=== PATIENT | female | born 1960 | race Caucasian/White ===

== ENCOUNTER 2017-06-20 01:00 | Inpatient (IN) | payer SELFPAY ==
[2017-06-20] VITALS (17 sets, daily range): BP systolic 111–162; BP diastolic 60–97; PULSE 46–80; RESP 12–25; TEMP 97.8–98.7; O2SAT 93–100
[~2017-06-20] VITALS: Ht 160 cm; Wt 57.7 kg
[~2017-06-20 01:00] MED LIST: ALBU17I INH; DOXY100T PO; PRED20 PO; Z.0.NO CURRENT MEDS
[2017-06-20] MEDS ORDERED: SODIUM CHLOR 0.9% 1000 ML INJ 1,000 ML IV ONE (02:30)
[2017-06-20 02:57] LABS: AUTOMATED NEUTROPHIL # 4.5 TH/MM3 (1.8-7.7); BASOPHIL # 0.1 TH/MM3 (0-0.2); BASOPHIL % 1.2 % (0.0-2.0); EOSINOPHIL # 0.2 TH/MM3 (0-0.4); EOSINOPHIL % 2.3 % (0.0-4.0); HEMATOCRIT 36.2 % (35.0-46.0); HEMOGLOBIN 12.6 GM/DL (11.6-15.3); LYMPH % 34.5 % (9.0-44.0); LYMPHOCYTE # 2.7 TH/MM3 (1.0-4.8); MEAN CELL VOLUME 88.1 FL (80.0-100.0); MEAN CORPUSCULAR HEMOGLOBIN 30.7 PG (27.0-34.0); MEAN CORPUSCULAR HGB CONC 34.9 % (32.0-36.0); MEAN PLATELET VOLUME 9.1 FL (7.0-11.0); MONOCYTE # 0.4 TH/MM3 (0-0.9); PLATELET COUNT 219 TH/MM3 (150-450); RED BLOOD COUNT 4.11 MIL/MM3 (4.00-5.30); RED CELL DISTRIBUTION WIDTH 12.7 % (11.6-17.2); WHITE BLOOD COUNT 7.9 TH/MM3 (4.0-11.0)
[2017-06-20 03:04] LABS: BICARBONATE 26.4 MEQ/L (21.0-32.0); CALCIUM 8.1 MG/DL (8.5-10.1); CREATININE 0.55 MG/DL (0.50-1.00)
--- NOTE | 2017-06-20 03:38 | RADRPT ---
EXAM DATE/TIME: 06/20/2017 03:22 [facility] COMPARISON: No previous studies available for comparison. INDICATIONS : Syncope after ETOH. RADIATION DOSE: 56.35 CTDIvol (mGy) MEDICAL HISTORY : ETOH SURGICAL HISTORY : None. ENCOUNTER: Initial ACUITY: 1 day PAIN SCALE: 0/10 LOCATION: cranial TECHNIQUE: Multiple contiguous axial images were obtained of the head. Using automated exposure control and adj ustment of the mA and/or kV according to patient size, radiation dose was kept as low as reasonably a chievable to obtain optimal diagnostic quality images. DICOM format image data is available electro nically for review and comparison. FINDINGS: CEREBRUM: Ventricles are normal. There is an 8mm area of high density in the mesial right parietal lobe in the mid convexity. Otherwise, no midline shift, mass lesion, or acute infarction. No extra-axial fluid c ollections are seen. POSTERIOR FOSSA: The cerebellum and brainstem demonstrate no acute finding. The 4th ventricle is midline. The cerebe llopontine angle is unremarkable. EXTRACRANIAL: There is mild left maxillary mucoperiosteal thickening. SKULL: The calvaria is intact. No evidence of skull fracture. CONCLUSION: There is an 8mm area of high density in the mesial right parietal lobe in the mid convexity, likely r epresenting acute blood products. No specific cause is identified. No other acute finding is identifi ed. Nader Cruz MD on June 20, 2017 at 3:34 Board Certified Radiologist. This report was verified electronically.
[2017-06-20] MEDS ORDERED: LORazepam 2 MG/ML VIAL IV PUSH ONE ×2 (04:15→05:15)
[2017-06-20 04:41] LABS: MAGNESIUM 0.7 MG/DL (1.5-2.5)
[2017-06-20 04:43] LABS: PROTHROMBIN TIME - PATIENT 9.7 SEC (9.8-11.6); TROPONIN I LESS THAN 0.02 NG/ML (0.02-0.05)
--- NOTE | 2017-06-20 05:06 | HHI.HP ---
HPI Service Critical Care Medicine Primary Care Physician Unknown Admission Diagnosis (R) parietal bleed; alcohol intoxication Diagnosis: Travel History International Travel<30 Days: No Contact w/Intl Traveler <30 Da: No Traveled to Known Affected Are: No History of Present Illness 56-year-old female was found by EMS close to a bar combative and agitated, extremely confused and altered. She was brought in emergency department where she received 1 dose of Ativan for sedation and underwent a CT of the head. The imaging studies report questionable small intracranial humeri which intraparenchymal and the patient is admitted to critical care services. Review of Systems ROS Unobtainable patient is severely intoxicated Past Family Social History Allergies: Coded Allergies: No Known Allergies (Verified Allergy, Mild, 06/20/17) Past Medical History Unobtainable Past Surgical History Unobtainable Reported Medications Reported Meds & Active Scripts Active No Active Prescriptions or Reported Medications Active Ordered Medications Current Medications Medications (Trade) Dose Ordered Sig/Gabriele Route PRN Reason Start Time Stop Time Status Last Admin Dose Admin Dexmedetomidine HCl 200 mcg/ Sodium Chloride 50 ml @ 3.75 mls/hr TITRATE PRN IV Desired RASS 06/20/17 05:30 Sodium Chloride 1,000 ml @ 124 mls/hr Q8H4M IV 06/20/17 05:23 Sodium Chloride (NS Flush) 2 ml UNSCH PRN IV FLUSH FLUSH AFTER USING IV ACCESS 06/20/17 05:30 Sodium Chloride (NS Flush) 2 ml BID IV FLUSH 06/20/17 09:00 Acetaminophen (Tylenol) 650 mg Q6H PRN PO PAIN 1-5 AND/OR FEVER >101F 06/20/17 05:30 Morphine Sulfate (Morphine Inj) 2 mg Q2H PRN IV PUSH PAIN SCALE 6 TO 10 06/20/17 05:30 Famotidine (Pepcid Inj) 20 mg Q12HR IV PUSH 06/20/17 09:00 Ondansetron HCl (Zofran Inj) 4 mg Q6H PRN IV PUSH NAUSEA OR VOMITING 06/20/17 05:30 Temazepam (Restoril) 15 mg HS PRN PO INSOMNIA 06/20/17 05:30 Albuterol/ Ipratropium (Duoneb Neb) 1 ampule Q2HR NEB PRN INH WHEEZING 06/20/17 05:30 Miscellaneous Information 1 Q361D XX 06/20/17 05:30 Chlorhexidine Gluconate (Chlorhexidine 2% Cloth) 3 pack Taper DAILY@04 TOP 06/21/17 04:00 06/17/18 03:59 Chlorhexidine Gluconate (Chlorhexidine 2% Cloth) 3 pack UNSCH PRN TOP HYGIENIC CARE 06/20/17 05:30 Senna/Docusate Sodium (Jana-Colace) 1 tab BID PO 06/20/17 09:00 Magnesium Hydroxide (Milk Of Magnesia Liq) 30 ml Q12H PRN PO Mild constipation 06/20/17 05:30 Sennosides (Senokot) 17.2 mg Q12H PRN PO Moderate constipation 06/20/17 05:30 Bisacodyl (Dulcolax Supp) 10 mg DAILY PRN RECTAL SEVERE CONSITIPATION 06/20/17 05:30 Lactulose (Lactulose Liq) 30 ml DAILY PRN PO SEVERE CONSITIPATION 06/20/17 05:30 Multivitamins 10 ml/Thiamine HCl 100 mg/Folic Acid 1 mg/Sodium Chloride 511.2 ml @ 125 mls/hr ONCE ONCE IV 06/20/17 09:00 06/20/17 13:05 Flumazenil (Romazicon Inj) 0.2 mg Q1M PRN IV PUSH SEE LABEL COMMENTS 06/20/17 05:30 Lorazepam (Ativan) 1 mg Q4H PRN PO CIWA 8 - 10 06/20/17 05:30 Lorazepam (Ativan Inj) 1 mg Q4H PRN IV PUSH CIWA 8 - 10 06/20/17 05:30 Lorazepam (Ativan) 2 mg Q2H PRN PO CIWA 11-14 06/20/17 05:30 Lorazepam (Ativan Inj) 2 mg Q2H PRN IV PUSH CIWA 11-14 06/20/17 05:30 Lorazepam (Ativan Inj) 2 mg Q1H PRN IV PUSH CIWA 15-20 06/20/17 05:30 Lorazepam (Ativan Inj) 2 mg Q15M PRN IV PUSH CIWA > 20 06/20/17 05:30 Family History Unobtainable Social History Unobtainable Physical Exam Vital Signs Vital Signs Date Time Temp Pulse Resp B/P (MAP) Pulse Ox O2 Delivery O2 Flow Rate FiO2 06/20/17 04:44 2/8/18 03:45 64 14 115/68 (84) 98 Room Air 06/20/17 02:44 71 12 114/61 (78) 100 Room Air 06/20/17 01:13 97.8 64 16 144/69 (94) 97 Physical Exam GENERAL: Heavily intoxicated female, combative in moderate distress SKIN: Warm and dry. HEAD: Normocephalic. EYES: No scleral icterus. No injection or drainage. NECK: Supple, trachea midline. No JVD or lymphadenopathy. CARDIOVASCULAR: Regular rate and rhythm without murmurs, gallops, or rubs. RESPIRATORY: Breath sounds equal bilaterally. No accessory muscle use. GASTROINTESTINAL: Abdomen soft, non-tender, nondistended. MUSCULOSKELETAL: No cyanosis, or edema. BACK: Nontender without obvious deformity. NEURO EXAM: GCS: 14 Mental Status: The patient is alert and oriented to person, she is combative and agitated Laboratory Laboratory Tests Test 06/20/17 02:40 06/20/17 04:00 White Blood Count 7.9 Red Blood Count 4.11 Hemoglobin 12.6 Hematocrit 36.2 Mean Corpuscular Volume 88.1 Mean Corpuscular Hemoglobin 30.7 Mean Corpuscular Hemoglobin Concent 34.9 Red Cell Distribution Width 12.7 Platelet Count 219 Mean Platelet Volume 9.1 Neutrophils (%) (Auto) 57.0 Lymphocytes (%) (Auto) 34.5 Monocytes (%) (Auto) 5.0 Eosinophils (%) (Auto) 2.3 Basophils (%) (Auto) 1.2 Neutrophils # (Auto) 4.5 Lymphocytes # (Auto) 2.7 Monocytes # (Auto) 0.4 Eosinophils # (Auto) 0.2 Basophils # (Auto) 0.1 CBC Comment DIFF FINAL Differential Comment Blood Urea Nitrogen 14 Creatinine 0.55 Random Glucose 134 Calcium Level 8.1 Sodium Level 137 Potassium Level 3.2 Chloride Level 102 Carbon Dioxide Level 26.4 Anion Gap 9 Estimat Glomerular Filtration Rate 114 Ethyl Alcohol Level 292 Prothrombin Time 9.7 Prothromb Time International Ratio 1.0 Activated Partial Thromboplast Time 19.2 Magnesium Level 0.7 Troponin I LESS THAN 0.02 Result Diagram: 06/20/17 0240 06/20/17 0240 Imaging Last [address] 06/20/17 0000 Signed Impressions: Service Date/Time: June 03:22 - CONCLUSION: There is an 8mm area of high density in the mesial right parietal lobe in the mid convexity , likely representing acute blood products. No specific cause is identified. No other acute finding is identified. Nader Cruz MD Septic Shock Reassessment Septic shock perfusion: reassessment completed Caprini VTE Risk Assessment Caprini VTE Risk Assessment: Mod/High Risk (score >= 2) VTE Pharm Contraindication: Hemorrhage Caprini Risk Assessment Model Point Value = 1 Point Value = 2 Point Value = 3 Point Value = 5 Age 41-60 Minor surgery BMI > 25 kg/m2 Swollen legs Varicose veins or History of unexplained or recurrent spontaneous Oral contraceptives or hormone replacement Sepsis (< 1 month) Serious lung disease, including pneumonia (< 1 month) Abnormal pulmonary function Acute myocardial infarction Congestive heart failure (< 1 month) History of inflammatory bowel disease Medical patient at bed rest Age 61-74 Arthroscopic surgery Major open surgery (> 45 min) Laparoscopic surgery (> 45 min) Malignancy Confined to bed (> 72 hours) Immobilizing plaster cast Central venous access Age >= 75 History of VTE Family history of VTE Factor V Leiden Prothrombin [id number] Lupus anticoagulant Anticardiolipin antibodies Elevated serum homocysteine Heparin-induced thrombocytopenia Other congenital or acquired thrombophilia Stroke (< 1 month) Elective arthroplasty Hip, pelvis, or leg fracture Acute spinal cord injury (< 1 month) Prophylaxis Regimen Total Risk Factor Score Risk Level Prophylaxis Regimen 0-1 Low Early ambulation 2 Moderate Order ONE of the following: *Sequential Compression Device (SCD) *Heparin 5000 units SQ BID 3-4 Higher Order ONE of the following medications: *Heparin 5000 units SQ TID *Enoxaparin/Lovenox 40 mg SQ daily (WT < 150 kg, CrCl > 30 mL/min) *Enoxaparin/Lovenox 30 mg SQ daily (WT < 150 kg, CrCl > 10-29 mL/min) *Enoxaparin/Lovenox 30 mg SQ BID (WT < 150 kg, CrCl > 30 mL/min) AND/OR *Sequential Compression Device (SCD) 5 or more Highest Order ONE of the following medications: *Heparin 5000 units SQ TID (Preferred with Epidurals) *Enoxaparin/Lovenox 40 mg SQ daily (WT < 150 kg, CrCl > 30 mL/min) *Enoxaparin/Lovenox 30 mg SQ daily (WT < 150 kg, CrCl > 10-29 mL/min) *Enoxaparin/Lovenox 30 mg SQ BID (WT < 150 kg, CrCl > 30 mL/min) AND *Sequential Compression Device (SCD) Assessment and Plan Assessment and Plan ICH - Repeat CT head in 10 hours - No surgical intervention indicated - Blood pressure control with SBP goal less than 140 - Neuro checks per unit protocol Intoxication - CIWA protocol - Precedex drip - Thiamine folate and multivitamins Hypokalemia Hypomagnesemia - Electrolyte replacement per ICU protocol DVT GI prophylaxis - Teds SCDs - No pharmacological DVT prophylaxis due to acute ICH - Pepcid Critical Care: The total critical care time was 35 minutes. Time to perform other separately billable procedures was not included in the critical care time. Garry Flannery MD Jun 20, 2017 05:06
[2017-06-20] MEDS ORDERED: HALOPERIDOL LACTATE 5 MG/ML AMP IV PUSH ONE (05:15)
[2017-06-20] MEDS: SODIUM CHLOR 0.9% 1000 ML INJ 1,000 ML IV SCH ×3 (05:23→22:54)
[2017-06-20] MEDS ORDERED: RESP: ALBUTEROL 2.5 MG/IPRATROPIUM 0.5 MG NEB (PRN) INH (05:30)
[2017-06-20] MEDS ORDERED: SODIUM CHLORIDE 0.9% FLUSH 10 ML FLUSH IV FLUSH PRN (05:30)
[2017-06-20] MEDS ORDERED: LORazepam 2 MG TAB PO PRN (05:30)
[2017-06-20] MEDS ORDERED: LORazepam 1 MG TAB PO PRN (05:30)
[2017-06-20] MEDS ORDERED: TEMAZEPAM 15 MG CAP PO PRN (05:30)
[2017-06-20] MEDS ORDERED: ACETAMINOPHEN 325 MG TAB PO PRN (05:30)
[2017-06-20] MEDS ORDERED: CHLORHEXIDINE GLUCONATE 2 % 1 PACK (2 CLOTHS) TOP PRN (05:30)
[2017-06-20] MEDS ORDERED: BISACODYL 10 MG SUPP RECTAL PRN (05:30)
[2017-06-20] MEDS ORDERED: MAGNESIUM HYDROXIDE SUSP 30 ML CUP PO PRN (05:30)
[2017-06-20] MEDS ORDERED: FLUMAZENIL 0.5 MG/5 ML VIAL IV PUSH PRN (05:30)
[2017-06-20] MEDS ORDERED: LACTULOSE SYRUP 20 GM/30 ML CUP PO PRN (05:30)
[2017-06-20] MEDS ORDERED: MISCELLANEOUS NURSING INFORMATION XX SCH (05:30)
[2017-06-20] MEDS ORDERED: SENNOSIDES 8.6 MG TAB PO PRN (05:30)
[2017-06-20] MEDS ORDERED: LORazepam 2 MG/ML VIAL IV PUSH PRN ×3 (05:30)
[2017-06-20] MEDS ORDERED: MORPHINE SULFATE 4 MG/ML INJ IV PUSH PRN (05:30)
[2017-06-20] MEDS ORDERED: ONDANSETRON HCL 4 MG/2 ML VIAL IV PUSH PRN (05:30)
[2017-06-20] MEDS ORDERED: POTASSIUM PHOSPHATE INJ 30 MMOL in SODIUM CHLOR 0.9% 250 ML INJ 250 ML IV PRN (06:45)
[2017-06-20] MEDS ORDERED: MAGNESIUM SULFATE INJ 4 GM in SODIUM CHLORIDE 0.9% INJ 92 ML IV PRN (06:45)
[2017-06-20] MEDS ORDERED: MAGNESIUM OXIDE 400 MG TAB PO PRN (06:45)
[2017-06-20] MEDS ORDERED: POTASSIUM PHOSPHATE MONOBASIC 500 MG TAB PO PRN (06:45)
[2017-06-20] MEDS ORDERED: POTASSIUM CHLOR 40 MEQ PREMIX 100 ML IV PRN ×2 (06:45)
[2017-06-20] MEDS ORDERED: POTASSIUM PHOSPHATE MONOBASIC 500 MG TAB PO/TUBE PRN (06:45)
[2017-06-20] MEDS ORDERED: SODIUM PHOSPHATE INJ 30 MMOL in SODIUM CHLOR 0.9% 250 ML INJ 240 ML IV PRN (06:45)
[2017-06-20] MEDS ORDERED: MAGNESIUM SULFATE INJ 2 GM in SODIUM CHLORIDE 0.9% INJ 96 ML IV PRN (06:45)
[2017-06-20] MEDS ORDERED: POTASSIUM CHLOR 20 MEQ PREMIX 100 ML IV PRN (06:45)
[2017-06-20] MEDS ORDERED: POTASSIUM CHLORIDE 25 MEQ EFFERVESCENT TAB PO PRN (06:45)
--- NOTE | 2017-06-20 08:25 | PD ---
HPI Chief Complaint: Alcohol/Drug Intoxication Time Seen by Provider: 02:17 Travel History International Travel<30 days: No Contact w/Intl Traveler<30days: No Traveled to known affect area: No History of Present Illness HPI 56-year-old female presents to the emergency department by EMS transport after being found on the ground next to a bar where she had been drinking. Patient was reported initially to have decreased level of consciousness but en route to the hospital became argumentative and combative with EMS personnel. Upon arrival to the emergency department patient was yelling and screaming and crying about the stretcher but was quickly the escalated and IV access was obtained and specimens collected and sent for resulting. Upon interview patient is able to say her name but appears to have slurred speech and appears consistent with alcohol intoxication by history and admits to drinking alcohol. Patient denies any substance use. Patient denies any injury or fall. Patient states that she was drinking heavily and so she laid down on the ground states she did not hit her head denies having loss of consciousness denies neck pain chest pain back pain abdominal pain or extremity injury. Patient states she just wants to be left alone and then becomes agitated and argumentative which did escalated upon decreasing questioning or stimulation of the patient. Patient denies any other complaints at this time. Patient did have one time episode of emesis and was administered a one-time dose of Zofran by EMS prior to arrival to the emergency department. 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, "VERY MILD CASE") Tetanus Vaccination: Unknown Influenza Vaccination: No : 2 Para: 0 Miscarriage: 2 : 0 Ectopic : Yes (REMOVED L FALLOP TUBE ) Ovarian Cysts: No Tubal Ligation: No Past Surgical History Surgical History: Unable to Obtain Hysterectomy: No Social History Alcohol Use: Yes (8 TIMES A MONTH) Tobacco Use: Yes (1PPD) Substance Use: No Allergies-Medications (Allergen,Severity, Reaction): Coded Allergies: No Known Allergies (Verified Allergy, Mild, 06/20/17) Reported Meds & Prescriptions Reported Meds & Active Scripts Active No Active Prescriptions or Reported Medications Review of Systems ROS Limitations: Altered Mental Status, Uncooperative (intermittently), Poor Historian Physical Exam Narrative GENERAL: Well-developed well-nourished disheveled female in no acute distress no respiratory distress, GCS14 SKIN: Warm and dry. HEAD: Atraumatic. Normocephalic. No scalp soft tissue tenderness soft tissue swelling abrasion laceration or bony abnormality. EYES: Pupils equal and round. Extraocular muscles intact. No periorbital rim ecchymosis or bony abnormality. No scleral icterus. No injection or drainage. ENT: No nasal bleeding or discharge. Mucous membranes pink and moist. Airway is patent. No hemotympanum. NECK: Trachea midline. No JVD. No tenderness to palpation along the cervical spine no midline tenderness no bony step-off. CARDIOVASCULAR: Regular rate and rhythm. RESPIRATORY: No accessory muscle use. Clear to auscultation. Breath sounds equal bilaterally. GASTROINTESTINAL: Abdomen soft, non-tender, nondistended. Hepatic and splenic margins not palpable. MUSCULOSKELETAL: Extremities without clubbing, cyanosis, or edema. No obvious deformities. NEUROLOGICAL: Awake and intermittently argumentative. No obvious cranial nerve deficits. Motor grossly within normal limits. Five out of 5 muscle strength in the arms and legs. Normal speech. Data Data Last Documented VS Vital Signs Date Time Temp Pulse Resp B/P (MAP) Pulse Ox O2 Delivery O2 Flow Rate FiO2 06/20/17 03:45 64 14 115/68 (84) 98 Room Air 06/20/17 01:13 97.8 Orders Orders Sodium Chlor 0.9% 1000 Ml Inj (Ns 1000 M (06/20/17 02:30) Alcohol (Ethanol) (06/20/17 02:17) Ct Brain W/O Iv Contrast(Rout) (06/20/17 ) Complete Blood Count With Diff (06/20/17 02:19) Basic Metabolic Panel (Bmp) (06/20/17 02:17) Electrocardiogram (06/20/17 ) Act Partial Throm Time (Ptt) (06/20/17 03:53) Prothrombin Time / Inr (Pt) (06/20/17 03:53) Magnesium (Mg) (06/20/17 03:53) Troponin I (06/20/17 03:53) NPO (06/20/17 03:53) Admit Order (Ed Use Only) (06/20/17 ) Gag Writer / Telemetry NEHAL.Q8H (06/20/17 03:55) Diet Npo (06/20/17 Breakfast) Activity Bed Rest (06/20/17 03:55) Notify Dr: Other (06/20/17 03:55) Labs Laboratory Tests Test 06/20/17 02:40 White Blood Count 7.9 TH/MM3 Red Blood Count 4.11 MIL/MM3 Hemoglobin 12.6 GM/DL Hematocrit 36.2 % Mean Corpuscular Volume 88.1 FL Mean Corpuscular Hemoglobin 30.7 PG Mean Corpuscular Hemoglobin Concent 34.9 % Red Cell Distribution Width 12.7 % Platelet Count 219 TH/MM3 Mean Platelet Volume 9.1 FL Neutrophils (%) (Auto) 57.0 % Lymphocytes (%) (Auto) 34.5 % Monocytes (%) (Auto) 5.0 % Eosinophils (%) (Auto) 2.3 % Basophils (%) (Auto) 1.2 % Neutrophils # (Auto) 4.5 TH/MM3 Lymphocytes # (Auto) 2.7 TH/MM3 Monocytes # (Auto) 0.4 TH/MM3 Eosinophils # (Auto) 0.2 TH/MM3 Basophils # (Auto) 0.1 TH/MM3 CBC Comment DIFF FINAL Differential Comment Blood Urea Nitrogen 14 MG/DL Creatinine 0.55 MG/DL Random Glucose 134 MG/DL Calcium Level 8.1 MG/DL Sodium Level 137 MEQ/L Potassium Level 3.2 MEQ/L Chloride Level 102 MEQ/L Carbon Dioxide Level 26.4 MEQ/L Anion Gap 9 MEQ/L Estimat Glomerular Filtration Rate 114 ML/MIN Ethyl Alcohol Level 292 MG/DL [facility] Medical Decision Making Medical Screen Exam Complete: Yes Emergency Medical Condition: Yes Medical Record Reviewed: Yes Interpretation(s) Serum alcohol: 292, elevated Last Impressions Head CT 06/20/17 0000 Signed Impressions: Service Date/Time: June 03:22 - CONCLUSION: There is an 8mm area of high density in the mesial right parietal lobe in the mid convexity , likely representing acute blood products. No specific cause is identified. No other acute finding is identified. Nader Cruz MD CBC & BMP Diagram 06/20/17 02:40 Calcium Level 8.1 L Vital Signs Date Time Temp Pulse Resp B/P (MAP) Pulse Ox O2 Delivery O2 Flow Rate FiO2 06/20/17 03:45 64 14 115/68 (84) 98 Room Air 06/20/17 02:44 71 12 114/61 (78) 100 Room Air 06/20/17 01:13 97.8 64 16 144/69 (94) 97 EKG: Sinus rhythm no acute ST elevation or injury pattern noted Troponin I less than 0.02, not elevated Differential Diagnosis Alcohol intoxication, altered mentation, polysubstance ingestion, minor closed head injury, ICH Narrative Course IV access obtained IV fluids administered patient placed on monitor Patient awaken migraine and removes IV access stating that she doesn't need an IV she doesn't want to be here and she wants to leave Patient taken for CT noncontrast no skull fracture identified to have small area of bleeding in the right parietal region; call placed to neurosurgery and to turbo operator Patient informed that she will need to be admitted for monitoring and becomes agitated and starts yelling and combative kicking at medical staff stating that she refuses to be admitted and refusing to have IV access; patient placed in soft restraints and due to increased agitation administered 1 mg of Ativan Patient's alcohol level 292 and patient is accepted for admission to ICU for observation. Patient identified to have mild hypokalemia troponin I less than 0.02 Magnesium level pending Physician Communication Physician Communication DISCUSSED WITH dR Becerra; DISCUSSED WITH dR Padron Diagnosis Primary Impression: ICH (intracerebral hemorrhage) Additional Impression: Alcohol intoxication Admitting Information Admitting Physician Requests: Admit Scripts No Active Prescriptions or Reported Meds Kiersten Marsh MD Jun 20, 2017 08:25
[2017-06-20] MEDS: SODIUM CHLORIDE 0.9% FLUSH 10 ML FLUSH IV FLUSH SCH ×2 (09:00→20:45)
[2017-06-20] MEDS ORDERED: MULTIVITAMIN INJ 10 ML, THIAMINE INJ 100 MG, FOLIC ACID INJ 1 MG in SODIUM CHLOR 0.45% ... IV ONE (09:00)
[2017-06-20] MEDS: FAMOTIDINE 20 MG/2 ML VIAL IV PUSH SCH ×2 (09:51→20:46)
[2017-06-20] MEDS: DOCUSATE SODIUM 50 MG/SENNA 8.6 MG TAB PO SCH ×2 (09:51→20:46)
[2017-06-20] MEDS: DEXMEDETOMIDINE 200 MCG in NS 48 ML IV PRN ×4 (09:52→22:00)
[2017-06-20] MEDS: POTASSIUM CHLOR 20 MEQ PREMIX 100 ML IV PRN ×4 (10:00→20:31)
[2017-06-20] MEDS: LORazepam 2 MG/ML VIAL IV PUSH PRN ×2 (12:10→14:26)
--- NOTE | 2017-06-20 16:52 | RADRPT ---
EXAM DATE/TIME: 06/20/2017 16:24 [facility] COMPARISON: CT BRAIN W/O CONTRAST, June 20, 2017, 3:22. INDICATIONS : Head pain due to intracerebral hemorrhage. RADIATION DOSE: 56.35 CTDIvol (mGy) MEDICAL HISTORY : Hepatitis B. SURGICAL HISTORY : None. ENCOUNTER: Subsequent ACUITY: 1 day PAIN SCALE: Non-responsive LOCATION: Bilateral cranial TECHNIQUE: Multiple contiguous axial images were obtained of the head. Using automated exposure control and adj ustment of the mA and/or kV according to patient size, radiation dose was kept as low as reasonably a chievable to obtain optimal diagnostic quality images. DICOM format image data is available electro nically for review and comparison. FINDINGS: CEREBRUM: The ventricles are normal for age. Focal area of increased density medially in the high right posteri or parietal lobe is completely unchanged. No midline shift. No extra-axial fluid collections are see n. POSTERIOR FOSSA: The cerebellum and brainstem are intact. The 4th ventricle is midline. The cerebellopontine angle i s unremarkable. EXTRACRANIAL: The visualized portion of the orbits is intact. SKULL: The calvaria is intact. No evidence of skull fracture. CONCLUSION: 1. Focal area of increased density medially in the posterior high right parietal convexity is complet latasha stable. This could represent a small area of parenchymal contusion or calcification. 2. No new lesions. No midline shift. Rico Bundy MD on June 20, 2017 at 16:44 Board Certified Radiologist. This report was verified electronically.
[2017-06-20] MEDS ORDERED: IOHEXOL 350 MG/ML 10 ML VIAL (for RAD DIAG) IVCONTRAST ONE (17:35)
--- NOTE | 2017-06-20 19:22 | PD.CONS ---
[facility] Service Neurosurgery Consult Requested By Dr Medel Reason for Consult [facility] Primary Care Physician Unknown History of Present Illness This is a 56-year-old female was found by EMS close to a bar, combative and agitated, extremely confused and altered mental status. Possibly intoxicated. No seizure activity reported. No tongue biting. No incontinence or stool or urine. She was brought in emergency department where she received 1 dose of Ativan for sedation and underwent a CT of the head. She was confused and agitated. She was moving well both upper and lower extremities. CT of the brain showed a small intracranial hemorrhage. Neurosurgical consultation was requested. Review of Systems Unobtainable patient is severely intoxicated Past Family Social History Allergies: Coded Allergies: No Known Allergies (Verified Allergy, Mild, 06/20/17) Past Medical History Unobtainable patient is severely intoxicated Past Surgical History Unobtainable patient is severely intoxicated Reported Medications Unobtainable patient is severely intoxicated Active Ordered Medications Current Medications Sodium Chloride 1,000 ml @ 999 mls/hr BOLUS ONCE IV Last administered on at 02:45; Start 06/20/17 at 02:30; Stop 06/20/17 at 03:30; Status DC Lorazepam (Ativan Inj) 1 mg ONCE ONCE IV PUSH Last administered on 06/20/17at 04 :18; Start 06/20/17 at 04:15; Stop 06/20/17 at 04:16; Status DC Lorazepam (Ativan Inj) 2 mg ONCE ONCE IV PUSH Last administered on 06/20/17at 05 :15; Start 06/20/17 at 05:15; Stop 06/20/17 at 05:16; Status DC Haloperidol Lactate (Haldol Inj) 5 mg ONCE ONCE IV PUSH Last administered on at 05:15; Start 06/20/17 at 05:15; Stop 06/20/17 at 05:16; Status DC Dexmedetomidine HCl 200 mcg/ Sodium Chloride 50 ml @ 3.75 mls/hr TITRATE PRN IV Desired RASS Last administered on 06/20/17at 22:00; Start 06/20/17 at 05:30; Stop 06/21/17 at 10:09; Status DC Sodium Chloride 1,000 ml @ 124 mls/hr Q8H4M IV Last administered on 06/20/17at 22:54; Start 06/20/17 at 05:23; Stop 06/21/17 at 10:09; Status DC Sodium Chloride (NS Flush) 2 ml UNSCH PRN IV FLUSH FLUSH AFTER USING IV ACCESS ; Start 06/20/17 at 05:30; Stop 06/21/17 at 10:09; Status DC Sodium Chloride (NS Flush) 2 ml BID IV FLUSH Last administered on 06/20/17at 20: 45; Start 06/20/17 at 09:00; Stop 06/21/17 at 10:09; Status DC Acetaminophen (Tylenol) 650 mg Q6H PRN PO PAIN 1-5 AND/OR FEVER >101F; Start at 05:30; Stop 06/21/17 at 10:09; Status DC Morphine Sulfate (Morphine Inj) 2 mg Q2H PRN IV PUSH PAIN SCALE 6 TO 10; Start 06/20/17 at 05:30; Stop 06/21/17 at 10:09; Status DC Famotidine (Pepcid Inj) 20 mg Q12HR IV PUSH Last administered on 06/20/17at 20:46 ; Start 06/20/17 at 09:00; Stop 06/21/17 at 10:09; Status DC Ondansetron HCl (Zofran Inj) 4 mg Q6H PRN IV PUSH NAUSEA OR VOMITING; Start 06/20/17 at 05:30; Stop 06/21/17 at 10:09; Status DC Temazepam (Restoril) 15 mg HS PRN PO INSOMNIA; Start 06/20/17 at 05:30; Stop 06/21/17 at 10:09; Status DC Albuterol/ Ipratropium (Duoneb Neb) 1 ampule Q2HR NEB PRN INH WHEEZING; Start 06/20/17 at 05:30; Stop 06/21/17 at 10:09; Status DC Miscellaneous Information 1 [id number] XX ; Start 06/20/17 at 05:30; Stop 06/21/17 at 10:09; Status DC Chlorhexidine Gluconate (Chlorhexidine 2% Cloth) 3 pack Taper DAILY@04 TOP ; Start 06/21/17 at 04:00; Stop 06/21/17 at 10:09; Status DC Chlorhexidine Gluconate (Chlorhexidine 2% Cloth) 3 pack UNSCH PRN TOP HYGIENIC CARE; Start 06/20/17 at 05:30; Stop 06/21/17 at 10:09; Status DC Senna/Docusate Sodium (Jaan-Colace) 1 tab BID PO Last administered on 06/20/17at 20:46; Start 06/20/17 at 09:00; Stop 06/21/17 at 10:09; Status DC Magnesium Hydroxide (Milk Of Magnesia Liq) 30 ml Q12H PRN PO Mild constipation ; Start 06/20/17 at 05:30; Stop 06/21/17 at 10:09; Status DC Sennosides (Senokot) 17.2 mg Q12H PRN PO Moderate constipation; Start 06/20/17 at 05:30; Stop 06/21/17 at 10:09; Status DC Bisacodyl (Dulcolax Supp) 10 mg DAILY PRN RECTAL SEVERE CONSITIPATION; Start at 05:30; Stop 06/21/17 at 10:09; Status DC Lactulose (Lactulose Liq) 30 ml DAILY PRN PO SEVERE CONSITIPATION; Start at 05:30; Stop 06/21/17 at 10:09; Status DC Multivitamins 10 ml/Thiamine HCl 100 mg/Folic Acid 1 mg/Sodium Chloride 511.2 ml @ 125 mls/hr ONCE ONCE IV Last administered on 06/20/17at 09:59; Start at 09:00; Stop 06/20/17 at 13:05; Status DC Flumazenil (Romazicon Inj) 0.2 mg Q1M PRN IV PUSH SEE LABEL COMMENTS; Start 06/20/17 at 05:30; Stop 06/21/17 at 10:09; Status DC Lorazepam (Ativan) 1 mg Q4H PRN PO CIWA 8 - 10; Start 06/20/17 at 05:30; Stop at 10:09; Status DC Lorazepam (Ativan Inj) 1 mg Q4H PRN IV PUSH CIWA 8 - 10 Last administered on 06/20/17at 18:42; Start 06/20/17 at 05:30; Stop 06/21/17 at 10:09; Status DC Lorazepam (Ativan) 2 mg Q2H PRN PO CIWA 11-14; Start 06/20/17 at 05:30; Stop 06/21/17 at 10:09; Status DC Lorazepam (Ativan Inj) 2 mg Q2H PRN IV PUSH CIWA 11-14 Last administered on 06/20at 14:26; Start 06/20/17 at 05:30; Stop 06/21/17 at 10:09; Status DC Lorazepam (Ativan Inj) 2 mg Q1H PRN IV PUSH CIWA 15-20; Start 06/20/17 at 05:30 ; Stop 06/21/17 at 10:09; Status DC Lorazepam (Ativan Inj) 2 mg Q15M PRN IV PUSH CIWA > 20; Start 06/20/17 at 05:30 ; Stop 06/21/17 at 10:09; Status DC Potassium Chloride 100 ml @ 50 mls/hr Q2H PRN IV For Potassium 2.8 - 3.2 mEq/L ; Start 06/20/17 at 06:45; Stop 06/21/17 at 10:09; Status DC Potassium Chloride 100 ml @ 50 mls/hr Q2H PRN IV For Potassium 2.8 - 3.2 mEq/ L Last administered on 06/20/17at 20:31; Start 06/20/17 at 06:45; Stop 06/21/17 at 10:09; Status DC Potassium Bicarb/ Potassium Chloride (K-Lyte Cl Eff) 50 meq UNSCH PRN PO For Potassium 3.3 - 3.5 mEq/L; Start 06/20/17 at 06:45; Stop 06/21/17 at 10:09; Status DC Potassium Chloride 100 ml @ 25 mls/hr UNSCH PRN IV For Potassium 3.3 - 3.5 mEq /L; Start 06/20/17 at 06:45; Stop 06/21/17 at 10:09; Status DC Potassium Chloride 100 ml @ 50 mls/hr Q2H PRN IV For Potassium 3.3 - 3.5 mEq/L ; Start 06/20/17 at 06:45; Stop 06/21/17 at 10:09; Status DC Magnesium Sulfate 4 gm/Sodium Chloride 100 ml @ 50 mls/hr UNSCH PRN IV For Magnesium 0.9 - 1.1 mg/dL; Start 06/20/17 at 06:45; Stop 06/21/17 at 10:09; Status DC Magnesium Oxide (Mag-Ox) 800 mg UNSCH PRN PO For Magnesium 1.2 - 1.6 mg/dL; Start 06/20/17 at 06:45; Stop 06/21/17 at 10:09; Status DC Magnesium Sulfate 2 gm/Sodium Chloride 100 ml @ 50 mls/hr UNSCH PRN IV For Magnesium 1.2 - 1.6 mg/dL; Start 06/20/17 at 06:45; Stop 06/21/17 at 10:09; Status DC Potassium Phosphate (K-Phos) 2,000 mg Q4H PRN PO For Phosphorus < 2.5 mg/dL; Start 06/20/17 at 06:45; Stop 06/21/17 at 10:09; Status DC Sodium Phosphate 30 mmol/Sodium Chloride 250 ml @ 42 mls/hr UNSCH PRN IV For Phosphorus < 2.5 mg/dL; Start 06/20/17 at 06:45; Stop 06/21/17 at 10:09; Status DC Potassium Phosphate (K-Phos) 2,000 mg UNSCH PRN PO/TUBE SEE LABEL COMMENTS; Start 06/20/17 at 06:45; Stop 06/21/17 at 10:09; Status DC Potassium Phosphate 30 mmol/ Sodium Chloride 260 ml @ 42 mls/hr UNSCH PRN IV SEE LABEL COMMENTS; Start 06/20/17 at 06:45; Stop 06/21/17 at 10:09; Status DC Iohexol (Omnipaque 350 Inj) 96 ml STK-MED ONCE IVCONTRAST Last administered on 06/20/17at 17:37; Start 06/20/17 at 17:35; Stop 06/20/17 at 17:36; Status DC Family History Unobtainable patient is severely intoxicated Social History Unobtainable patient is severely intoxicated Physical Exam Vital Signs Vital Signs Date Time Temp Pulse Resp B/P (MAP) Pulse Ox O2 Delivery O2 Flow Rate FiO2 06/20/17 16:00 80 06/20/17 16:00 98.3 46 21 118/60 (79) 93 06/20/17 15:00 52 2/8/18 14:00 80 06/20/17 12:00 62 06/20/17 12:00 98.4 61 18 153/97 (115) 95 06/20/17 10:00 58 06/20/17 09:15 98 21 06/20/17 08:00 58 06/20/17 08:00 98.7 58 18 156/81 (106) 98 06/20/17 07:00 58 06/20/17 07:00 96 Room Air 06/20/17 06:00 62 06/20/17 05:00 97.8 70 25 162/96 (118) 97 06/20/17 04:44 06/20/17 03:45 64 14 115/68 (84) 98 Room Air 06/20/17 02:44 71 12 114/61 (78) 100 Room Air 06/20/17 01:13 97.8 64 16 144/69 (94) 97 Physical Exam The patient is alert, confused, oriented to self. Cranial nerve examination demonstrates the pupils to be equal, round, and reactive to light. Extra-ocular movements are intact with normal convergence. Facial motor function appears normal and symmetrical. Face sensation, hearing, visual ballard, and olfaction can not be assessed properly due to the patients condition. The patient has an intact corneal reflex and a gag reflex. Sternocleidomastoid and trapezius have normal and symmetrical strength. Other cranial nerves are intact. Neck is soft and supple. Cervical spine has a normal range of motion of the cervical spine without pain. There is no tenderness to palpation to the spinous processes or paraspinal muscles. Muscle testing reveals normal bulk and tone overall without rigidity, spasticity , fasciculations, or atrophy. Muscle strength is 5/5 in all muscle groups of both upper and lower extremities. Deep tendon reflexes are 1+ and symmetrical in the biceps, triceps, and brachioradialis, bilaterally, in the upper extremities. In the lower extremities , the patellar and Achilles are 1+, bilaterally. There is a bilateral plantar flexion response. Hoffmanns sign is negative. There is no clonus or other abnormal reflexes noted. Cerebellar examination is limited due to the patient condition, but no obvious deficits are noted. Laboratory Laboratory Tests Test 06/20/17 02:40 06/20/17 04:00 06/20/17 05:00 06/20/17 10:08 White Blood Count 7.9 Red Blood Count 4.11 Hemoglobin 12.6 Hematocrit 36.2 Mean Corpuscular Volume 88.1 Mean Corpuscular Hemoglobin 30.7 Mean Corpuscular Hemoglobin Concent 34.9 Red Cell Distribution Width 12.7 Platelet Count 219 Mean Platelet Volume 9.1 Neutrophils (%) (Auto) 57.0 Lymphocytes (%) (Auto) 34.5 Monocytes (%) (Auto) 5.0 Eosinophils (%) (Auto) 2.3 Basophils (%) (Auto) 1.2 Neutrophils # (Auto) 4.5 Lymphocytes # (Auto) 2.7 Monocytes # (Auto) 0.4 Eosinophils # (Auto) 0.2 Basophils # (Auto) 0.1 CBC Comment DIFF FINAL Differential Comment Blood Urea Nitrogen 14 Creatinine 0.55 Random Glucose 134 Calcium Level 8.1 Sodium Level 137 Potassium Level 3.2 Chloride Level 102 Carbon Dioxide Level 26.4 Anion Gap 9 Estimat Glomerular Filtration Rate 114 Ethyl Alcohol Level 292 Prothrombin Time 9.7 Prothromb Time International Ratio 1.0 Activated Partial Thromboplast Time 19.2 Magnesium Level 0.7 Troponin I LESS THAN 0.02 Nasal Screen MRSA (PCR) MRSA NOT DETECTED Phosphorus Level 3.2 Result Diagram: 06/20/17 0240 06/20/17 0240 Imaging Last [address] 06/20/17 0000 Signed Impressions: Service Date/Time: June 03:22 - CONCLUSION: There is an 8mm area of high density in the mesial right parietal lobe in the mid convexity , likely representing acute blood products. No specific cause is identified. No other acute finding is identified. Nader Cruz MD Assessment and Plan Assessment and Plan Caprini VTE Risk Assessment Caprini VTE Risk Assessment Caprini VTE Risk Assessment: Mod/High Risk (score >= 2) VTE Pharm Contraindication: Hemorrhage Caprini Risk Assessment Model Point Value = 1 Point Value = 2 Point Value = 3 Point Value = 5 Age 41-60 Minor surgery BMI > 25 kg/m2 Swollen legs Varicose veins or History of unexplained or recurrent spontaneous Oral contraceptives or hormone replacement Sepsis (< 1 month) Serious lung disease, including pneumonia (< 1 month) Abnormal pulmonary function Acute myocardial infarction Congestive heart failure (< 1 month) History of inflammatory bowel disease Medical patient at bed rest Age 61-74 Arthroscopic surgery Major open surgery (> 45 min) Laparoscopic surgery (> 45 min) Malignancy Confined to bed (> 72 hours) Immobilizing plaster cast Central venous access Age >= 75 History of VTE Family history of VTE Factor V Leiden Prothrombin [id number] Lupus anticoagulant Anticardiolipin antibodies Elevated serum homocysteine Heparin-induced thrombocytopenia Other congenital or acquired thrombophilia Stroke (< 1 month) Elective arthroplasty Hip, pelvis, or leg fracture Acute spinal cord injury (< 1 month) Prophylaxis Regimen Total Risk Factor Score Risk Level Prophylaxis Regimen 0-1 Low Early ambulation 2 Moderate Order ONE of the following: *Sequential Compression Device (SCD) *Heparin 5000 units SQ BID 3-4 Higher Order ONE of the following medications: *Heparin 5000 units SQ TID *Enoxaparin/Lovenox 40 mg SQ daily (WT < 150 kg, CrCl > 30 mL/min) *Enoxaparin/Lovenox 30 mg SQ daily (WT < 150 kg, CrCl > 10-29 mL/min) *Enoxaparin/Lovenox 30 mg SQ BID (WT < 150 kg, CrCl > 30 mL/min) AND/OR *Sequential Compression Device (SCD) 5 or more Highest Order ONE of the following medications: *Heparin 5000 units SQ TID (Preferred with Epidurals) *Enoxaparin/Lovenox 40 mg SQ daily (WT < 150 kg, CrCl > 30 mL/min) *Enoxaparin/Lovenox 30 mg SQ daily (WT < 150 kg, CrCl > 10-29 mL/min) *Enoxaparin/Lovenox 30 mg SQ BID (WT < 150 kg, CrCl > 30 mL/min) AND *Sequential Compression Device (SCD) Attending Statement [facility]. neuro checks. Non surgical management - No surgical intervention indicated - Blood pressure control Intoxication - CIWA protocol - Precedex drip - Thiamine folate and multivitamins Pulmonary..aggressive pulmonary toilette, nasotracheal suction, and breathing treatments with nebulizers. Nutrition. Oral diet Hypokalemia. Electrolyte replacement per ICU protocol Hypomagnesemia. Electrolyte replacement per ICU protocol Renal. monitor closely urine output, BUN and creatinine Endocrine. Monitor serial Acu checks and SSI as needed in detail ID monitor for signs of infection Protonix for stress ulcer prophylaxis [place] and SCD's for DVT prophylaxis Santhosh Stevenson MD Jun 20, 2017 19:22
--- NOTE | 2017-06-20 20:15 | EKG ---
Date Performed: 06/20/2017 Time Performed: 04:19:25 PTAGE: 56 years EKG: Sinus rhythm POSSIBLE RIGHT VENTRICULAR CONDUCTION DELAY NONSPECIFIC T-WAVE ABNORMALITY BORDERLINE ECG NO PREVIOUS TRACING DOCTOR: Yusuf Burgos Interpretating Date/Time 06/20/2017 20:13:48
[2017-06-21] VITALS: BP 134/66; PULSE 51; RESP 20; TEMP 98.6; O2SAT 96
[2017-06-21 02:00] VITALS: PULSE 60
[2017-06-21 03:41] LABS: AUTOMATED NEUTROPHIL # 4.9 TH/MM3 (1.8-7.7); BASOPHIL # 0.1 TH/MM3 (0-0.2); EOSINOPHIL # 0.2 TH/MM3 (0-0.4); EOSINOPHIL % 2.7 % (0.0-4.0); HEMATOCRIT 36.4 % (35.0-46.0); HEMOGLOBIN 12.4 GM/DL (11.6-15.3); LYMPH % 23.4 % (9.0-44.0); LYMPHOCYTE # 1.7 TH/MM3 (1.0-4.8); MEAN CELL VOLUME 88.4 FL (80.0-100.0); MEAN CORPUSCULAR HEMOGLOBIN 30.2 PG (27.0-34.0); MEAN CORPUSCULAR HGB CONC 34.1 % (32.0-36.0); MEAN PLATELET VOLUME 8.5 FL (7.0-11.0); MONO % 5.7 % (0.0-8.0); MONOCYTE # 0.4 TH/MM3 (0-0.9); NEUT % 67.2 % (16.0-70.0); PLATELET COUNT 207 TH/MM3 (150-450); RED BLOOD COUNT 4.12 MIL/MM3 (4.00-5.30); RED CELL DISTRIBUTION WIDTH 12.5 % (11.6-17.2); WHITE BLOOD COUNT 7.4 TH/MM3 (4.0-11.0)
[2017-06-21 03:51] LABS: PROTHROMBIN TIME - PATIENT 10.1 SEC (9.8-11.6)
[2017-06-21 04:00] VITALS: BP 111/63; PULSE 55; RESP 20; TEMP 98.8; O2SAT 96
[2017-06-21] MEDS ORDERED: CHLORHEXIDINE GLUCONATE 2 % 1 PACK (2 CLOTHS) TOP SCH (04:00)
[2017-06-21 04:25] LABS: ALBUMIN 3.2 GM/DL (3.4-5.0); ALKALINE PHOSPHATASE 65 U/L (45-117); ALT (GPT) 15 U/L (10-53); AST (GOT) 15 U/L (15-37); BICARBONATE 27.7 MEQ/L (21.0-32.0); BLOOD UREA NITROGEN 12 MG/DL (7-18); CHLORIDE 110 MEQ/L (98-107); CREATININE 0.55 MG/DL (0.50-1.00); GLOMERULAR FILTRATION RATE 114 ML/MIN (>89); GLUCOSE,RANDOM 72 MG/DL (74-106); PHOSPHORUS 3.3 MG/DL (2.5-4.9); SODIUM (NA) 142 MEQ/L (136-145); TOTAL BILIRUBIN ADULT 0.7 MG/DL (0.2-1.0); TOTAL PROTEIN 6.3 GM/DL (6.4-8.2)
[2017-06-21 06:00] VITALS: PULSE 56
[2017-06-21 07:30] VITALS: PULSE 58
--- NOTE | 2017-06-21 13:53 | HHI.NSPN ---
Note Status Status: Progress Note Interval History Interval History This is a 56-year-old female was found by EMS close to a bar, combative and agitated, extremely confused and altered mental status. Possibly intoxicated. No seizure activity reported. No tongue biting. No incontinence or stool or urine. She was brought in emergency department where she received 1 dose of Ativan for sedation and underwent a CT of the head. She was confused and agitated. She was moving well both upper and lower extremities. CT of the brain showed a small intracranial hemorrhage. Neurosurgical consultation was requested. 06/20 Alert and awake. Oriented. She wants to go home AMA Labs, Micro, & Vital Signs Results Date Time Temp Pulse Resp B/P (MAP) Pulse Ox O2 Delivery O2 Flow Rate FiO2 06/21/17 07:30 58 06/21/17 07:30 96 Room Air 21 06/21/17 06:00 56 06/21/17 04:00 98.8 55 20 111/63 (79) 96 06/21/17 04:00 55 06/21/17 02:00 60 06/21/17 00:00 98.6 51 20 134/66 (88) 96 06/21/17 00:00 51 06/20/17 23:00 80 06/20/17 22:00 51 06/20/17 20:00 51 06/20/17 20:00 98.7 51 22 111/63 (79) 95 06/20/17 19:00 100 Room Air 21 06/20/17 18:00 47 06/20/17 16:00 80 06/20/17 16:00 98.3 46 21 118/60 (79) 93 06/20/17 15:00 52 06/20/17 14:00 80 Constitutional Vital Signs Date Time Temp Pulse Resp B/P (MAP) Pulse Ox O2 Delivery O2 Flow Rate FiO2 06/21/17 07:30 58 06/21/17 07:30 96 Room Air 21 06/21/17 06:00 56 06/21/17 04:00 98.8 55 20 111/63 (79) 96 06/21/17 04:00 55 06/21/17 02:00 60 06/21/17 00:00 98.6 51 20 134/66 (88) 96 06/21/17 00:00 51 06/20/17 23:00 80 06/20/17 22:00 51 06/20/17 20:00 51 06/20/17 20:00 98.7 51 22 111/63 (79) 95 06/20/17 19:00 100 Room Air 21 06/20/17 18:00 47 06/20/17 16:00 80 06/20/17 16:00 98.3 46 21 118/60 (79) 93 06/20/17 15:00 52 06/20/17 14:00 80 Physical Exam She is alert, awake and oriented to time, place and person. Speech is fluent. Cranial nerve examination: pupils to be equal, round and reactive to light. Extra-ocular movements are intact. Facial motor and sensory function are normal and symmetrical. Gross hearing appears intact. Sternocleidomastoid and trapezius muscles are symmetrical. Other cranial nerves are intact. Neck is soft and supple with a good range of motion without pain. Muscle strength is normal in all muscle groups of both upper and lower extremities. Sensory examination is intact to light touch and pin prick in both the upper and lower extremities. Deep tendon reflexes are symmetrical in both upper and lower extremities. There is a bilateral plantar flexion response. Cerebellar examination is unremarkable, without deficits. Medications Current Medications Current Medications Sodium Chloride 1,000 ml @ 999 mls/hr BOLUS ONCE IV Last administered on 02:45; Start 06/20/17 at 02:30; Stop 06/20/17 at 03:30; Status DC Lorazepam (Ativan Inj) 1 mg ONCE ONCE IV PUSH Last administered on 06/20/17at 04 :18; Start 06/20/17 at 04:15; Stop 06/20/17 at 04:16; Status DC Lorazepam (Ativan Inj) 2 mg ONCE ONCE IV PUSH Last administered on 06/20/17at 05 :15; Start 06/20/17 at 05:15; Stop 06/20/17 at 05:16; Status DC Haloperidol Lactate (Haldol Inj) 5 mg ONCE ONCE IV PUSH Last administered on at 05:15; Start 06/20/17 at 05:15; Stop 06/20/17 at 05:16; Status DC Dexmedetomidine HCl 200 mcg/ Sodium Chloride 50 ml @ 3.75 mls/hr TITRATE PRN IV Desired RASS Last administered on 06/20/17at 22:00; Start 06/20/17 at 05:30; Stop 06/21/17 at 10:09; Status DC Sodium Chloride 1,000 ml @ 124 mls/hr Q8H4M IV Last administered on 06/20/17at 22:54; Start 06/20/17 at 05:23; Stop 06/21/17 at 10:09; Status DC Sodium Chloride (NS Flush) 2 ml UNSCH PRN IV FLUSH FLUSH AFTER USING IV ACCESS ; Start 06/20/17 at 05:30; Stop 06/21/17 at 10:09; Status DC Sodium Chloride (NS Flush) 2 ml BID IV FLUSH Last administered on 06/20/17at 20: 45; Start 06/20/17 at 09:00; Stop 06/21/17 at 10:09; Status DC Acetaminophen (Tylenol) 650 mg Q6H PRN PO PAIN 1-5 AND/OR FEVER >101F; Start at 05:30; Stop 06/21/17 at 10:09; Status DC Morphine Sulfate (Morphine Inj) 2 mg Q2H PRN IV PUSH PAIN SCALE 6 TO 10; Start 06/20/17 at 05:30; Stop 06/21/17 at 10:09; Status DC Famotidine (Pepcid Inj) 20 mg Q12HR IV PUSH Last administered on 06/20/17at 20:46 ; Start 06/20/17 at 09:00; Stop 06/21/17 at 10:09; Status DC Ondansetron HCl (Zofran Inj) 4 mg Q6H PRN IV PUSH NAUSEA OR VOMITING; Start 06/20/17 at 05:30; Stop 06/21/17 at 10:09; Status DC Temazepam (Restoril) 15 mg HS PRN PO INSOMNIA; Start 06/20/17 at 05:30; Stop 06/21/17 at 10:09; Status DC Albuterol/ Ipratropium (Duoneb Neb) 1 ampule Q2HR NEB PRN INH WHEEZING; Start 06/20/17 at 05:30; Stop 06/21/17 at 10:09; Status DC Miscellaneous Information 1 [id number] ; Start 06/20/17 at 05:30; Stop 06/21/17 at 10:09; Status DC Chlorhexidine Gluconate (Chlorhexidine 2% Cloth) 3 pack Taper DAILY@04 TOP ; Start 06/21/17 at 04:00; Stop 06/21/17 at 10:09; Status DC Chlorhexidine Gluconate (Chlorhexidine 2% Cloth) 3 pack UNSCH PRN TOP HYGIENIC CARE; Start 06/20/17 at 05:30; Stop 06/21/17 at 10:09; Status DC Senna/Docusate Sodium (Jana-Colace) 1 tab BID PO Last administered on 06/20/17at 20:46; Start 06/20/17 at 09:00; Stop 06/21/17 at 10:09; Status DC Magnesium Hydroxide (Milk Of Magnesia Liq) 30 ml Q12H PRN PO Mild constipation ; Start 06/20/17 at 05:30; Stop 06/21/17 at 10:09; Status DC Sennosides (Senokot) 17.2 mg Q12H PRN PO Moderate constipation; Start 06/20/17 at 05:30; Stop 06/21/17 at 10:09; Status DC Bisacodyl (Dulcolax Supp) 10 mg DAILY PRN RECTAL SEVERE CONSITIPATION; Start at 05:30; Stop 06/21/17 at 10:09; Status DC Lactulose (Lactulose Liq) 30 ml DAILY PRN PO SEVERE CONSITIPATION; Start at 05:30; Stop 06/21/17 at 10:09; Status DC Multivitamins 10 ml/Thiamine HCl 100 mg/Folic Acid 1 mg/Sodium Chloride 511.2 ml @ 125 mls/hr ONCE ONCE IV Last administered on 06/20/17at 09:59; Start at 09:00; Stop 06/20/17 at 13:05; Status DC Flumazenil (Romazicon Inj) 0.2 mg Q1M PRN IV PUSH SEE LABEL COMMENTS; Start 06/20/17 at 05:30; Stop 06/21/17 at 10:09; Status DC Lorazepam (Ativan) 1 mg Q4H PRN PO CIWA 8 - 10; Start 06/20/17 at 05:30; Stop at 10:09; Status DC Lorazepam (Ativan Inj) 1 mg Q4H PRN IV PUSH CIWA 8 - 10 Last administered on 06/20/17at 18:42; Start 06/20/17 at 05:30; Stop 06/21/17 at 10:09; Status DC Lorazepam (Ativan) 2 mg Q2H PRN PO CIWA 11-14; Start 06/20/17 at 05:30; Stop 06/21/17 at 10:09; Status DC Lorazepam (Ativan Inj) 2 mg Q2H PRN IV PUSH CIWA 11-14 Last administered on 06/20at 14:26; Start 06/20/17 at 05:30; Stop 06/21/17 at 10:09; Status DC Lorazepam (Ativan Inj) 2 mg Q1H PRN IV PUSH CIWA 15-20; Start 06/20/17 at 05:30 ; Stop 06/21/17 at 10:09; Status DC Lorazepam (Ativan Inj) 2 mg Q15M PRN IV PUSH CIWA > 20; Start 06/20/17 at 05:30 ; Stop 06/21/17 at 10:09; Status DC Potassium Chloride 100 ml @ 50 mls/hr Q2H PRN IV For Potassium 2.8 - 3.2 mEq/L ; Start 06/20/17 at 06:45; Stop 06/21/17 at 10:09; Status DC Potassium Chloride 100 ml @ 50 mls/hr Q2H PRN IV For Potassium 2.8 - 3.2 mEq/ L Last administered on 06/20/17at 20:31; Start 06/20/17 at 06:45; Stop 06/21/17 at 10:09; Status DC Potassium Bicarb/ Potassium Chloride (K-Lyte Cl Eff) 50 meq UNSCH PRN PO For Potassium 3.3 - 3.5 mEq/L; Start 06/20/17 at 06:45; Stop 06/21/17 at 10:09; Status DC Potassium Chloride 100 ml @ 25 mls/hr UNSCH PRN IV For Potassium 3.3 - 3.5 mEq /L; Start 06/20/17 at 06:45; Stop 06/21/17 at 10:09; Status DC Potassium Chloride 100 ml @ 50 mls/hr Q2H PRN IV For Potassium 3.3 - 3.5 mEq/L ; Start 06/20/17 at 06:45; Stop 06/21/17 at 10:09; Status DC Magnesium Sulfate 4 gm/Sodium Chloride 100 ml @ 50 mls/hr UNSCH PRN IV For Magnesium 0.9 - 1.1 mg/dL; Start 06/20/17 at 06:45; Stop 06/21/17 at 10:09; Status DC Magnesium Oxide (Mag-Ox) 800 mg UNSCH PRN PO For Magnesium 1.2 - 1.6 mg/dL; Start 06/20/17 at 06:45; Stop 06/21/17 at 10:09; Status DC Magnesium Sulfate 2 gm/Sodium Chloride 100 ml @ 50 mls/hr UNSCH PRN IV For Magnesium 1.2 - 1.6 mg/dL; Start 06/20/17 at 06:45; Stop 06/21/17 at 10:09; Status DC Potassium Phosphate (K-Phos) 2,000 mg Q4H PRN PO For Phosphorus < 2.5 mg/dL; Start 06/20/17 at 06:45; Stop 06/21/17 at 10:09; Status DC Sodium Phosphate 30 mmol/Sodium Chloride 250 ml @ 42 mls/hr UNSCH PRN IV For Phosphorus < 2.5 mg/dL; Start 06/20/17 at 06:45; Stop 06/21/17 at 10:09; Status DC Potassium Phosphate (K-Phos) 2,000 mg UNSCH PRN PO/TUBE SEE LABEL COMMENTS; Start 06/20/17 at 06:45; Stop 06/21/17 at 10:09; Status DC Potassium Phosphate 30 mmol/ Sodium Chloride 260 ml @ 42 mls/hr UNSCH PRN IV SEE LABEL COMMENTS; Start 06/20/17 at 06:45; Stop 06/21/17 at 10:09; Status DC Iohexol (Omnipaque 350 Inj) 96 ml STK-MED ONCE IVCONTRAST Last administered on 06/20/17at 17:37; Start 06/20/17 at 17:35; Stop 06/20/17 at 17:36; Status DC Medical Decision Making MDM Remarks Last [address] 06/20/17 1300 Signed Impressions: Service Date/Time: June 16:24 - CONCLUSION: 1. Focal area of increased density medially in the posterior high right parietal convexity is completely stable. This could represent a small area of parenchymal contusion or calcification. 2. No new lesions. No midline shift. Rico Bundy MD Head CT 06/20/17 0000 Signed Impressions: Service Date/Time: June 03:22 - CONCLUSION: There is an 8mm area of high density in the mesial right parietal lobe in the mid convexity , likely representing acute blood products. No specific cause is identified. No other acute finding is identified. Nader Cruz MD Plan Plan Remarks Caprini VTE Risk Assessment Caprini VTE Risk Assessment Caprini VTE Risk Assessment: Mod/High Risk (score >= 2) VTE Pharm Contraindication: Hemorrhage Caprini Risk Assessment Model Point Value = 1 Point Value = 2 Point Value = 3 Point Value = 5 Age 41-60 Minor surgery BMI > 25 kg/m2 Swollen legs Varicose veins or History of unexplained or recurrent spontaneous Oral contraceptives or hormone replacement Sepsis (< 1 month) Serious lung disease, including pneumonia (< 1 month) Abnormal pulmonary function Acute myocardial infarction Congestive heart failure (< 1 month) History of inflammatory bowel disease Medical patient at bed rest Age 61-74 Arthroscopic surgery Major open surgery (> 45 min) Laparoscopic surgery (> 45 min) Malignancy Confined to bed (> 72 hours) Immobilizing plaster cast Central venous access Age >= 75 History of VTE Family history of VTE Factor V Leiden Prothrombin [id number] Lupus anticoagulant Anticardiolipin antibodies Elevated serum homocysteine Heparin-induced thrombocytopenia Other congenital or acquired thrombophilia Stroke (< 1 month) Elective arthroplasty Hip, pelvis, or leg fracture Acute spinal cord injury (< 1 month) Prophylaxis Regimen Total Risk Factor Score Risk Level Prophylaxis Regimen 0-1 Low Early ambulation 2 Moderate Order ONE of the following: *Sequential Compression Device (SCD) *Heparin 5000 units SQ BID 3-4 Higher Order ONE of the following medications: *Heparin 5000 units SQ TID *Enoxaparin/Lovenox 40 mg SQ daily (WT < 150 kg, CrCl > 30 mL/min) *Enoxaparin/Lovenox 30 mg SQ daily (WT < 150 kg, CrCl > 10-29 mL/min) *Enoxaparin/Lovenox 30 mg SQ BID (WT < 150 kg, CrCl > 30 mL/min) AND/OR *Sequential Compression Device (SCD) 5 or more Highest Order ONE of the following medications: *Heparin 5000 units SQ TID (Preferred with Epidurals) *Enoxaparin/Lovenox 40 mg SQ daily (WT < 150 kg, CrCl > 30 mL/min) *Enoxaparin/Lovenox 30 mg SQ daily (WT < 150 kg, CrCl > 10-29 mL/min) *Enoxaparin/Lovenox 30 mg SQ BID (WT < 150 kg, CrCl > 30 mL/min) AND *Sequential Compression Device (SCD) Attending Statement ICH. neuro checks. No surgical intervention indicated She is requesting discharge AMA Intoxication. Continue Thiamine folate and multivitamins Nutrition. Oral diet Hypokalemia. hypomagnesemia. defer to medical Protonix for stress ulcer prophylaxis [place] and SCD's for DVT prophylaxis willl sign off Santhosh Stevenson MD Jun 21, 2017 13:53
== END 2017-06-21 10:09 | disposition left against medical advice (07) | DRG 66 ==
LOC: NEPC 01:00 → NEDA 03:56 → N03A 04:36
PROVIDERS: ADMIT Internal Medicine Critical Care Medicine; ATTEND Internal Medicine Critical Care Medicine
DX: I61.1 Nontraumatic intracerebral hemorrhage in hemisphere, cortical (principal); E83.42 Hypomagnesemia; E87.6 Hypokalemia; F10.129 Alcohol abuse with intoxication, unspecified; Y90.8 Blood alcohol level of 240 mg/100 ml or more; Z72.0 Tobacco use
CPT/HCPCS: 70450; 80048; 80053; 80307; 83735; 84100; 84484; 85025; 85610; 85730; 87641; 93005; 96360; J1630; J2060; J3411; J3480; J7030; Q9967